=== PATIENT | male | born 1950 | race Caucasian/White ===

== ENCOUNTER → 2018-10-19 | Outpatient (CLI) | payer MEDICARE, MEDICAID ==
[2018-10-19 09:19] LABS: ALBUMIN 4.5 GM/DL (3.2-5.2); ALT/SGPT 29 U/L (12-78); BILIRUBIN,TOTAL 0.8 MG/DL (0.2-1.0); BLOOD UREA NITROGEN 3 MG/DL (7-18); CALCIUM LEVEL 9.2 MG/DL (8.8-10.2); CARBON DIOXIDE LEVEL 32 MEQ/L (21-32); CHLORIDE LEVEL 97 MEQ/L (98-107); CHOLESTEROL LEVEL 180 MG/DL (<200); CREATININE FOR GFR 0.76 MG/DL (0.70-1.30); GLOMERULAR FILTRATION RATE > 60.0 (>49); GLUCOSE, FASTING 76 MG/DL (70-100); HDL CHOLESTEROL 50 MG/DL (>40); LDL CHOLESTEROL 115 MG/DL (<100); NON-HDL-C 130 MG/DL; POTASSIUM SERUM 4.1 MEQ/L (3.5-5.1); SODIUM LEVEL 134 MEQ/L (136-145); TOTAL PROTEIN 7.4 GM/DL (6.4-8.2); TRIGLYCERIDES LEVEL 76 MG/DL (<150)
== END ==
LOC: M LAB 08:02
PROVIDERS: ATTEND Nurse Practitioner Family
DX: R03.0 Elevated blood-pressure reading, without diagnosis of hypertension (principal); E55.9 Vitamin D deficiency, unspecified; N40.0 Benign prostatic hyperplasia without lower urinary tract symptoms; E78.5 Hyperlipidemia, unspecified; Z12.5 Encounter for screening for malignant neoplasm of prostate
CPT/HCPCS: 36415; 80053; 80061; G0103

== ENCOUNTER 2020-12-09 08:11 | Outpatient (RCR) | payer MEDICARE, MEDICAID | END 2020-12-11 | LOC: M PT 08:11 | PROVIDERS: ATTEND Physician Assistant | DX: S60.212A Contusion of left wrist, initial encounter (principal); X58.XXXA Exposure to other specified factors, initial encounter; Y92.9 Unspecified place or not applicable; Y99.9 Unspecified external cause status ==

== ENCOUNTER 2020-12-15 11:46 | Outpatient (RCR) | payer MEDICARE, MEDICAID | END 2021-01-11 | LOC: M PT 11:46 | PROVIDERS: ATTEND Physician Assistant | DX: S60.212A Contusion of left wrist, initial encounter (principal) ==

== ENCOUNTER → 2021-01-10 | Outpatient (REF) | payer MEDICARE, MEDICAID ==
[2021-01-10 22:36] LABS: APPEARANCE, URINE CLEAR (CLEAR); BACTERIA, URINE AUTO NEGATIVE (NEGATIVE); BILIRUBIN, URINE AUTO NEGATIVE (NEGATIVE); BLOOD, URINE BLOOD NEGATIVE (NEGATIVE); COLOR, URINE STRAW (YELLOW); GLUCOSE, URINE (UA) AUTO NEGATIVE (NEGATIVE); KETONE, URINE AUTO TRACE mg/dL (NEGATIVE); LEUKOCYTE ESTERASE, URINE AUTO NEGATIVE (NEGATIVE); NITRITE, URINE AUTO NEGATIVE (NEGATIVE); PROTEIN, URINE AUTO NEGATIVE (NEGATIVE); RBC, URINE AUTO 0 /HPF (0-3); SPECIFIC GRAVITY URINE AUTO 1.001 (1.002-1.035); SQUAMOUS EPITHELIAL CELL UR AU 0 /HPF (0-6); UROBILINOGEN, URINE AUTO 0.2 mg/dL (0.0-2.0); WBC, URINE AUTO 0 /HPF (0-3)
== END ==
LOC: M LAB REF 22:14
PROVIDERS: ATTEND Physician Assistant
DX: R30.0 Dysuria (principal)

== ENCOUNTER → 2021-10-11 | Outpatient (RCR) | payer MEDICARE, MEDICAID | LOC: M PT 10-05 09:32 | PROVIDERS: ATTEND Physician Assistant | DX: M50.30 Other cervical disc degeneration, unspecified cervical region (principal); M54.2 Cervicalgia ==

== ENCOUNTER 2021-10-20 10:12 | Outpatient (RCR) | payer MEDICARE, MEDICAID | END 2021-11-10 | LOC: M PT 10:12 | PROVIDERS: ATTEND Physician Assistant | DX: M50.30 Other cervical disc degeneration, unspecified cervical region (principal); M54.2 Cervicalgia ==

== ENCOUNTER → 2022-09-15 | Outpatient (CLI) | payer MEDICARE, MEDICAID | LOC: M EKG 13:49 | PROVIDERS: ATTEND Pediatrics | DX: I48.0 Paroxysmal atrial fibrillation (principal) ==

== ENCOUNTER → 2023-01-11 | Outpatient (RCR) | payer MEDICARE, MEDICAID | LOC: M PT 12-19 09:36 | PROVIDERS: ATTEND Physician Assistant | DX: M54.2 Cervicalgia (principal) ==